=== PATIENT | female | born 1970 | race Caucasian/White ===

== ENCOUNTER 2019-11-30 08:36 | Outpatient (CLI) | payer BC, SELFPAY ==
--- NOTE | 2019-11-30 08:42 | USCV_ITS ---
Saige Gongora Age: 49 Gender: F : 1970 Exam Date: 11/30/2019 09:05 Ordering Phys: Tigre Watkins MD Technologist: Ziggy Pierce [place] [facility] [place]: PALP BP: 125 / 74 HR: 81 Rhythm: Sinus Technical Quality: Good MEASUREMENTS (Male / Female) Normal Values 2D ECHO LV Diastolic Diameter PLAX 4.1 cm 4.2 - 5.9 / 3.9 - 5.3 cm LV Systolic Diameter PLAX 2.6 cm IVS Diastolic Thickness 0.9 cm 0.6 - 1.0 / 0.6 - 0.9 cm IVS Systolic Thickness 1.5 cm LVPW Diastolic Thickness 0.9 cm 0.6 - 1.0 / 0.6 - 0.9 cm LVPW Systolic Thickness 1.3 cm LVOT Diameter 2.0 cm LV Ejection Fraction 2D Teich 67.1 % LV Ejection Fraction MOD 2C 63.5 % LV Ejection Fraction 2C AL 64.2 % LA Diameter 3.3 cm LA Width 3.3 cm LA Height 3.6 cm RA Width 3.2 cm RA Height 4.3 cm Aorta at Sinotubular Diameter 1.0 cm M-MODE LV Diastolic Diameter MM 4.1 cm 4.2 - 5.9 / 3.9 - 5.3 cm LV Systolic Diameter MM 2.3 cm LV Ejection Fraction MM Teich 76.4 % IVS Diastolic Thickness MM 0.9 cm 0.6 - 1.0 / 0.6 - 0.9 cm IVS Systolic Thickness MM 1.4 cm LVPW Diastolic Thickness MM 1.1 cm 0.6 - 1.0 / 0.6 - 0.9 cm LVPW Systolic Thickness MM 2.2 cm RV Diastolic Diameter MM 2.1 cm Aortic Annulus Diameter 2.8 cm LA Ao Ratio MM 1.2 MV E Point Septal Separation 0.8 cm DOPPLER AV Peak Velocity 92.0 cm/s LVOT Peak Velocity 81.0 cm/s AV Area Cont Eq vti 3.3 cm squared AV Area Cont Eq pk 2.8 cm squared MV Area PHT 3.2 cm squared Mitral E to A Ratio 1.4 MV E' Velocity 12.0 cm/s Mitral E to MV E' Ratio 2.9 Mitral E to LV E' Lateral Ratio 5.9 Mitral E to LV E' Septal Ratio 2.0 TR Peak Velocity 88.0 cm/s TR Peak Gradient 3.1 mmHg TV Peak E Velocity 104.0 cm/s Right Atrial Pressure 3.0 mmHg Pulmonary Artery Systolic Pressu 6.1 mmHg FINDINGS Left Ventricle Normal left ventricular size and systolic function, EF 58 %. No regional wall motion abnormalities. Right Ventricle The right ventricle is normal in size and function. Right Atrium The right atrium is normal in size. Left Atrium The left atrium is normal in size. Mitral Valve Trace mitral valve regurgitation. Aortic Valve No gross abnormalities noted Tricuspid Valve Trace tricuspid valve regurgitation. Pulmonic Valve Structurally normal pulmonic valve without significant stenosis. There is no pulmonic regurgitation. Pericardium No pericardial effusion. Aorta Normal ascending aorta dimension. CONCLUSIONS Normal left ventricular size and systolic function, EF 58 %. No regional wall motion abnormalities. Trace mitral valve regurgitation. Trace tricuspid valve regurgitation. There is no pericardial effusion. There are no intracardiac masses. Compared to the previous study from 08/03/2017, currently there is no pericardial effusion Dr Asim Mcneill MD FACC (Electronically Signed) Final Date: 30 November 2019 19:29 S
== END 2019-11-30 08:37 | disposition home or self-care (01) ==
LOC: US 08:38
PROVIDERS: Family Provider Family Medicine; PCP Family Medicine; Visit Provider Family Medicine
DX: R00.2 Palpitations (principal); R93.1 Abnormal findings on diagnostic imaging of heart and coronary circulation; I31.3 Pericardial effusion (noninflammatory); I08.1 Rheumatic disorders of both mitral and tricuspid valves
CPT/HCPCS: 93306

== ENCOUNTER → 2020-01-08 12:49 | Outpatient (BNVA) | payer BC, SELFPAY | PROVIDERS: Family Provider Family Medicine; PCP Family Medicine; Referring Provider Dermatology; Visit Provider Dermatology | DX: L59.0 Erythema ab igne [dermatitis ab igne] (principal); D23.9 Other benign neoplasm of skin, unspecified; D22.9 Melanocytic nevi, unspecified; B00.1 Herpesviral vesicular dermatitis | CPT/HCPCS: 99203 ==

== ENCOUNTER → 2020-01-23 06:56 | Day surgery (SDC) | payer BC, SELFPAY ==
[2020-01-23 07:11] VITALS: BP 104/66; PULSE 69; RESP 18; TEMP 36.7; O2SAT 96; BMI 23.3
== END ==
PROVIDERS: PCP Family Medicine; Visit Provider Family Medicine
DX: M81.0 Age-related osteoporosis without current pathological fracture (principal)
CPT/HCPCS: 96365; J3489

== ENCOUNTER → 2021-01-29 10:57 | Day surgery (SDC) | payer BC, SELFPAY ==
[2021-01-29 11:16] VITALS: BP 113/63; PULSE 63; RESP 18; TEMP 36.7; O2SAT 98
[2021-01-29 12:07] LABS: Blood Urea Nitrogen 17 mg/dL (6-20); Calcium 9.7 mg/dL (8.5-10.5); Glomerular Filtration Rate 88.9 mL/min (90-130)
--- NOTE | 2021-01-29 13:08 | PC.NURSE ---
1225 Pt creatinine clearance 92. Calcium WNL. Reclast given IVPB as ordered.
== END ==
PROVIDERS: PCP Family Medicine; Visit Provider Family Medicine
DX: M81.0 Age-related osteoporosis without current pathological fracture (principal)
CPT/HCPCS: 36415; 82310; 82565; 84520; 96365; J3489

== ENCOUNTER → 2022-08-09 08:40 | Outpatient (BNVA) | payer BC, SELFPAY | PROVIDERS: PCP Family Medicine; Visit Provider Family Medicine | DX: R76.8 Other specified abnormal immunological findings in serum (principal) | CPT/HCPCS: 80048; 81000; 84156; 87086 ==